=== PATIENT | male | born 1965 | race Caucasian/White ===

== ENCOUNTER 2017-09-12 12:47 | Outpatient (CLI) ==
[2013-10-03 01:09] VITALS: BMI 32.9
== END 2017-09-12 12:48 | disposition home or self-care (01) ==
LOC: LAB 12:47
PROVIDERS: ATTEND Internal Medicine
DX: Z20.5 Contact with and (suspected) exposure to viral hepatitis (principal)
CPT/HCPCS: 36415; 87522

== ENCOUNTER 2018-06-19 06:49 | Outpatient (CLI) ==
[2013-10-03 01:09] VITALS: BMI 32.9
--- NOTE | 2018-06-20 12:24 | ECHO2D ---
Date of Exam: 06/19/18 Ordering Physician: DR. RODRIGO DAVIS Room # : OP Reason for Echo: SOB M-Mode Normal Adult Results LV Dimensions Normal Adult Results AoV Opening excursions >1.6 >1.6 LVEDD-base- 3.5-5.8 4.6 Ao root dimensions 2.0-3.7 3.6 LVESD-base- 3.1-4.6 L. Atrium dimensions 1.9-3.8 4.5 Post. Wall thickness 0.8-1.1 1.1 IV septum (thickness) 0.7-1.2 1.2 Post. Wall excursion 0.72-1.3 NORMAL Septal motion NORMAL Systolic motion R. Ventricular cavity 1.5-2.0 NORMAL LVEF 60% 63% Paradoxical septal wall motion NORMAL 2-D : 2-D M Mode Echocardiogram was performed using apical four chamber and left parasternal long and short axis views. Mitral, tricuspid and aortic valves appear to be normal. Contractility of the left ventricle seems to be normal, so is the cavity size. Enlarged Left atrial cavity size. Aortic root appears to be normal. There is no pericardial effusion. There is no thrombus noted in the left ventricular or left aortic cavity. No mitral valve prolapse noted. M-MODE: MV: NORMAL AV: NORMAL TV: NORMAL PV: CHAMBER SIZE: ENLARGED LEFT ATRIAL CAVITY WALL MOTION: NORMAL PERICARDIUM: NORMAL INTERPRETATION: 1. BORDERLINE LEFT VENTRICULAR HYPERTROPHY 2. ENLARGED LEFT ATRIAL CAVITY 3. NORMAL VALVES 4. NORMAL LEFT VENTRICULAR CONTRACTILITY MTDD
== END 2018-06-19 06:50 | disposition home or self-care (01) ==
LOC: CAR 06:49
PROVIDERS: ATTEND Internal Medicine
DX: R06.02 Shortness of breath (principal)
CPT/HCPCS: 93005; 93010

== ENCOUNTER 2020-05-12 13:06 | Observation (INO) ==
[2020-05-12] MEDS ORDERED: SODIUM CHLORIDE 1,000 ML IV STA ×2 (13:52→17:55)
[2020-05-12] MEDS ORDERED: MORPHINE 4 MG/ML SYRINGE IVP STA (13:52)
--- NOTE | 2020-05-12 13:53 | ED.PDOC ---
General ED Provider: Dr. YANY KINSEY Chief Complaint: Chest Pain Stated Complaint: Lt sided chest pain. States radiating into lt arm intermittently for several months. States now it feels as if his neck is swollen and has sensation of difficulty swallowing for past 3 days. Has experienced dizziness at times and noted temperature up to 101 deg Time Seen by Physician: 13:35 Mode of Arrival: Wheelchair Information Source: Patient Exam Limitations: No limitations Primary Care Provider: RODRIGO ROUSE Referred to ED by: Clinic (Was given. Rx for outpatient testing but could not wait that long) Nursing and Triage Documentation Reviewed and Agree: Yes Does patient meet sepsis criteria?: No System Inflammatory Response Syndrome: Not Applicable Sepsis Protocol: For patient's 13 years and over: Temp is 96.8 and below OR 101 and greater Pulse >90 BPM Resp >20/minute Acutely Altered Mental Status Are patient's symptoms suggestive of a new infection, such as: -Pneumonia -Skin, Soft Tissue -Endocarditis -UTI -Bone, Joint Infection -Implantable Device -Acute Abdominal Infection -Wound Infection -Meningitis -Blood Stream Catheter Infection -Unknown Cardiovascular Complaint Exam Chest Pain Complaint/Exam Onset: Gradual Duration: 2-3 days Symptoms Are: Worse Timing: Constant (with intermittent worsening) Length of Chest Pain Episodes: 1 hr Initial Severity: Moderate Current Severity: Moderate Location: Reports Midsternal and Left anterior Pain Radiates: Reports Left shoulder and Neck Character: Reports Aching, Heaviness and Pressure Aggravating: Reports Movement and Deep breaths Alleviating: Reports Rest Associated Signs and Symptoms: Denies Diaphoresis, Nausea, Vomiting, Fever, Palpitations, Cough, Hemoptysis, Back pain, Abdominal pain, Dizziness, Short of air, Calf pain and Calf swelling Related History: Reports Similar episode and Current [place] Inhibitors Related Surgical History: Reports None History of Healthcare-Acquired Pneumonia: Reports No AMI/ACS Risk Factors: Reports Obesity, Hypertension and Dyslipidemia TAD Risk Factors: Reports Hypertension Pulmonary Embolism Risk Factors: Reports None Recent Stress Test: No Recent Echo/LV Function: No JVD Present: No Subcutaneous Emphysema Present: No Diminshed Breath Sounds: No Reproducible Chest Wall Pain: Yes Bilateral Pulses Present: Yes Unequal Pulses Noted: No Chest Picture: 1. 2. If Risk Factors for AMI/ACS Consider: EKG and Cardiac Enzymes Differential Diagnoses: ACS, Unstable Angina, Chest Wall Pain and Pulmonary Embolism Quality Indicator For Non-Traumatic Chest Pain/Syncope: EKG Performed Review of Systems Review Of Systems Constitutional: Reports No symptoms Eyes: Reports No symptoms Ears, Nose, Mouth, Throat: Reports No symptoms Respiratory: Reports No symptoms Cardiac: Reports Chest pain, Lightheadedness and Palpitations GI: Reports No symptoms : Reports No symptoms Musculoskeletal: Reports No symptoms Skin: Reports No symptoms Neurological: Reports No symptoms Endocrine: Reports No symptoms Hematologic/Lymphatic: Reports No symptoms All Other Systems: Reviewed and Negative [facility] Medical History (Updated 05/13/20 @ 08:03 by ELLA BIRCH) Arthritis Back pain COPD (chronic obstructive pulmonary disease) Diabetes Hypertension Serum lipids high Family History (Updated 05/12/20 @ 20:18 by NIDHI MARINA) Mother Hypertension Diabetes FATHER Hypertension Diabetes Social History (Updated 05/12/20 @ 20:18 by NIDHI MARINA) Smoking and tobacco status: Never smoker Alcohol intake: former Physical Exam Physical Exam Appearance: Reports Well-appearing, Well-nourished and Obese Ill-appearing: Mild Pain Distress: Moderate Eyes: Reports KYLE, EOMI and Conjunctiva clear ENT: Reports Ears normal, Nose normal and Oropharynx normal Neck: Supple Respiratory: Reports Airway patent, Breath sounds clear, Breath sounds equal and Respirations nonlabored Cardiovascular: Reports RRR, Pulses normal, No rub and No murmur GI/: Reports Soft, Nontender, No masses, Bowel sounds normal and No Organomegaly Musculoskeletal: Reports Normal strength, ROM intact, No edema and No calf tenderness Skin: Reports Warm, Dry and Normal color Neurological: Reports Sensation intact, Motor intact, Reflexes intact, Cranial nerves intact, Alert and Oriented Psychiatric: Reports Affect appropriate and Mood appropriate Interpretation Radiology Interpretation Radiology Interpretation By: Radiologist Radiology Results: No acute changes (Chest) Exam Interpreted: CT Scan (CTA Neck-No masses or vascular occlusions) Physician Notification Case Discussed Physician Notified: Rouse-admit R/O Angina- [place] Time of Notification: 15:40 Critical Care Note Critical Care Note Total Time (mins): 60 Course Course Hematology/Chemistry: 05/13/20 04:45 05/13/20 04:45 Orders, Labs, Meds: Lab Review 05/12/20 05/12/20 05/12/20 09:10 09:10 13:50 WBC RBC Hgb Hct MCV MCH MCHC RDW Coeff of Anneliese Plt Count Immature Gran % (Auto) Neut % (Auto) Lymph % (Auto) [place] % (Auto) Eos % (Auto) Baso % (Auto) Neut # (Auto) Lymph # (Auto) [place] # (Auto) Eos # (Auto) Baso # (Auto) Immature Gran # (Auto) Puncture Site O2 Saturation ABG pH ABG pCO2 ABG pO2 ABG HCO3 ABG Total CO2 ABG Base Excess [place] Test FiO2 % Sodium Potassium Chloride Carbon Dioxide Anion Gap BUN Creatinine Estimated GFR (MDRD) BUN/Creatinine Ratio Glucose Lactic Acid Uric Acid Calcium Magnesium Total Bilirubin AST ALT Alkaline Phosphatase Total Creatine Kinase Troponin I C-Reactive Prot, Quant 14 H Total Protein Albumin Globulin Albumin/Globulin Ratio Urine Color Yellow Urine Clarity Clear Urine pH 5.0 Ur Specific [place] >=1.030 Urine Protein Negative Urine Glucose (UA) 3+ H Urine Ketones Trace H Urine Blood Negative Urine Nitrite Negative Urine Bilirubin Negative Urine Urobilinogen 0.2 Ur Leukocyte Esterase Negative Urine Opiates Screen Ur Oxycodone Screen Urine Methadone Screen Ur Propoxyphene Screen Ur Barbiturates Screen U Tricyclic Antidepress Ur Phencyclidine Scrn Ur Amphetamine Screen U Methamphetamines Scrn U Benzodiazepines Scrn Urine Cocaine Screen U Cannabinoids Screen FOREST Screen Negative Influ A Molecular Assay Influ B Molecular Assay 05/12/20 05/12/20 05/12/20 13:50 14:05 14:05 WBC 6.10 RBC 4.60 L Hgb 14.0 Hct 40.6 L MCV 88.3 MCH 30.4 MCHC 34.5 RDW Coeff of Anneliese 12.7 Plt Count 185 Immature Gran % (Auto) 0.5 Neut % (Auto) 67.8 Lymph % (Auto) 21.0 [place] % (Auto) 7.4 Eos % (Auto) 2.8 Baso % (Auto) 0.5 Neut # (Auto) 4.1 Lymph # (Auto) 1.3 [place] # (Auto) 0.5 Eos # (Auto) 0.2 Baso # (Auto) 0.0 Immature Gran # (Auto) 0.0 Puncture Site O2 Saturation ABG pH ABG pCO2 ABG pO2 ABG HCO3 ABG Total CO2 ABG Base Excess [place] Test FiO2 % Sodium 136.4 Potassium 4.17 Chloride 101.4 Carbon Dioxide 27.3 Anion Gap 11.87 BUN 9.9 Creatinine 0.84 Estimated GFR (MDRD) 95.00 BUN/Creatinine Ratio 11.78 Glucose 230.1 H Lactic Acid Uric Acid 3.34 L Calcium 9.51 Magnesium 1.94 Total Bilirubin 0.43 AST 30.1 ALT 25.2 Alkaline Phosphatase 59.1 Total Creatine Kinase 79.5 Troponin I 0.055 C-Reactive Prot, Quant Total Protein 7.74 Albumin 4.38 Globulin 3.36 Albumin/Globulin Ratio 1.30 Urine Color Urine Clarity Urine pH Ur Specific [place] Urine Protein Urine Glucose (UA) Urine Ketones Urine Blood Urine Nitrite Urine Bilirubin Urine Urobilinogen Ur Leukocyte Esterase Urine Opiates Screen Positive H Ur Oxycodone Screen Positive H Urine Methadone Screen Negative Ur Propoxyphene Screen Negative Ur Barbiturates Screen Negative U Tricyclic Antidepress Negative Ur Phencyclidine Scrn Negative Ur Amphetamine Screen Negative U Methamphetamines Scrn Negative U Benzodiazepines Scrn Negative Urine Cocaine Screen Negative U Cannabinoids Screen Negative FOREST Screen Influ A Molecular Assay Influ B Molecular Assay 05/12/20 05/12/20 05/12/20 14:05 14:45 14:55 WBC RBC Hgb Hct MCV MCH MCHC RDW Coeff of Anneliese Plt Count Immature Gran % (Auto) Neut % (Auto) Lymph % (Auto) [place] % (Auto) Eos % (Auto) Baso % (Auto) Neut # (Auto) Lymph # (Auto) [place] # (Auto) Eos # (Auto) Baso # (Auto) Immature Gran # (Auto) Puncture Site Rr O2 Saturation 96.0 ABG pH 7.382 ABG pCO2 41.6 ABG pO2 87.0 ABG HCO3 24.7 ABG Total CO2 26 ABG Base Excess 0 [place] Test + FiO2 % 21.0 Sodium Potassium Chloride Carbon Dioxide Anion Gap BUN Creatinine Estimated GFR (MDRD) BUN/Creatinine Ratio Glucose Lactic Acid 1.27 Uric Acid Calcium Magnesium Total Bilirubin AST ALT Alkaline Phosphatase Total Creatine Kinase Troponin I C-Reactive Prot, Quant Total Protein Albumin Globulin Albumin/Globulin Ratio Urine Color Urine Clarity Urine pH Ur Specific [place] Urine Protein Urine Glucose (UA) Urine Ketones Urine Blood Urine Nitrite Urine Bilirubin Urine Urobilinogen Ur Leukocyte Esterase Urine Opiates Screen Ur Oxycodone Screen Urine Methadone Screen Ur Propoxyphene Screen Ur Barbiturates Screen U Tricyclic Antidepress Ur Phencyclidine Scrn Ur Amphetamine Screen U Methamphetamines Scrn U Benzodiazepines Scrn Urine Cocaine Screen U Cannabinoids Screen FOREST Screen Influ A Molecular Assay Negative by naat Influ B Molecular Assay Negative by naat Orders Category Date Time Status ABG DRAW REQUEST Stat CARDIO 05/12/20 13:53 Completed EKG-(ED ONLY) Stat CARDIO 05/12/20 13:53 Completed OXYGEN Routine CARDIO 05/12/20 13:53 Completed NPO REMINDER: IMAGING ONCE CARE 05/12/20 15:51 Completed IV [ED IV/MEDIPORT/POWERPORT] .ONCE EMERGENCY 05/12/20 13:53 Active ABG Stat LAB 05/12/20 14:55 Completed FOREST W/REFLEX Stat LAB 05/12/20 09:10 Completed C-REACTIVE PROTEIN Stat LAB 05/12/20 09:10 Completed CBC W/ AUTO DIFF Stat LAB 05/12/20 14:05 Completed CMP [COMPREHENSIVE METABOLIC PANEL] Stat LAB 05/12/20 14:05 Completed CREATINE KINASE Stat LAB 05/12/20 14:05 Completed FLU A/B MOLECULAR Stat LAB 05/12/20 14:45 Completed LACTIC ACID Stat LAB 05/12/20 14:05 Completed MAGNESIUM Stat LAB 05/12/20 14:05 Completed RAPID STREP SCREEN [MOLECULAR GROUP A STREP] Stat LAB 05/12/20 14:45 Completed TROPONIN I Stat LAB 05/12/20 14:05 Completed UA [URINALYSIS C & S IF INDICATED] Stat LAB 05/12/20 13:50 Completed URIC ACID Stat LAB 05/12/20 14:05 Completed URINE DRUG SCREEN (RAPID FOR ED) [DRUG SCREEN, URINE, LAB 05/12/20 13:50 Completed RAPID] Stat 0.9 % Sodium Chloride [Saline Flush] MEDS 05/12/20 13:52 Discontinued 1 syr IVF PRN PRN Morphine Sulfate [Morphine 2 mg/ml Syringe] MEDS 05/12/20 15:52 Discontinued 2 mg IVP ONCE STA Morphine Sulfate [Morphine 4 mg/ml Syringe] MEDS 05/12/20 13:52 Discontinued 4 mg IVP ONCE STA Nitroglycerin [Nitrostat] MEDS 05/12/20 13:56 Discontinued 0.4 mg SL ONCE STA Sodium Chloride 0.9% [Sodium Chloride] 1,000 ml MEDS 05/12/20 13:52 Discont inued IV BOLUS CHEST, 1V AP ONLY Stat RADS 05/12/20 13:53 Completed CTA ANGIO NECK Stat RADS 05/12/20 15:50 Completed Medications Discontinued Medications Generic Name Dose Route Start Last Admin Trade Name Freq PRN Reason Stop Dose Admin Acetaminophen 650 mg 05/12/20 17:55 05/13/20 04:45 Tylenol PO 650 mg Q4H PRN Administration Temp above 101 deg Hydrocodone Bitart/Acetaminophen 1 tab 05/12/20 21:00 05/12/20 21:07 [place] 10-325 PO 1 tab QID ROSALINDA Administration Hydrocodone Bitart/Acetaminophen 1 tab 05/13/20 06:08 05/13/20 12:23 [place] 10-325 PO 1 tab QID PRN Administration Pain Albuterol Sulfate 2 puff 05/12/20 18:30 Ventolin Hfa (Per Puff-With Spacer) IH QID ROSALINDA Albuterol Sulfate 2 puff 05/12/20 20:00 05/13/20 10:02 Ventolin Hfa (Per Puff-With Spacer) IH 2 puff RTQID ROSALINDA Administration Aspirin 81 mg 05/13/20 08:30 05/13/20 08:29 Aspirin Ec PO 81 mg DAILYWM ROSALINDA Administration Clonazepam 1 mg 05/12/20 18:00 05/12/20 21:11 Klonopin PO 1 mg BEDTIME ROSALINDA Administration Clonidine 0.1 mg 05/12/20 21:00 Catapres PO BID ROSALINDA Clonidine 0.1 mg 05/12/20 20:58 Catapres PO BID PRN hypertension Enoxaparin Sodium 40 mg 05/12/20 18:00 05/13/20 08:29 Lovenox SUBCUT 40 mg DAILY ROSALINDA Administration Fish Oil 2,000 mg 05/13/20 09:00 05/13/20 08:29 [place]-3 Fish Oil PO 2,000 mg DAILY ROSALINDA Administration Gabapentin 300 mg 05/12/20 21:00 05/12/20 21:07 Neurontin PO 300 mg BEDTIME ROSALINDA Administration Gabapentin 100 mg 05/13/20 09:00 05/13/20 08:29 Neurontin PO 100 mg DAILY ROSALINDA Administration Sodium Chloride 1,000 mls @ 1,000 mls/hr 05/12/20 13:52 05/12/20 15:09 Sodium Chloride IV 05/12/20 14:51 1,000 mls/hr BOLUS STA Administration Sodium Chloride 1,000 mls @ 125 mls/hr 05/12/20 17:55 05/12/20 21:10 Sodium Chloride IV 05/13/20 01:54 125 mls/hr BOLUS STA Administration Insulin Human Regular 0 unit 05/12/20 20:51 05/13/20 12:23 Humulin R SUBCUT 6 unit PRN PRN Administration Hyperglycemia Protocol Ketorolac Tromethamine 30 mg 05/12/20 17:55 05/12/20 18:45 Toradol IVP 05/12/20 17:56 30 mg ONCE STA Administration Lisinopril 20 mg 05/12/20 21:00 05/13/20 08:29 Zestril PO 20 mg BID ROSALINDA Administration Methylprednisolone Sodium Succinate 125 mg 05/12/20 21:00 05/13/20 05:56 Solu-Medrol 125 Mg IVP 125 mg Q8HR ROSALINDA Administration Morphine Sulfate 4 mg 05/12/20 13:52 05/12/20 15:04 Morphine 4 Mg/Ml Syringe IVP 05/12/20 13:53 4 mg ONCE STA Administration Morphine Sulfate 2 mg 05/12/20 15:52 05/12/20 16:10 Morphine 2 Mg/Ml Syringe IVP 05/12/20 15:53 2 mg ONCE STA Administration Nitroglycerin 0.4 mg 05/12/20 13:56 05/12/20 15:08 Nitrostat SL 05/12/20 13:57 0.4 mg ONCE STA Administration Ondansetron HCl 4 mg 05/12/20 17:55 Zofran 4 Mg/2 Ml IVP Q6H PRN Nausea / Vomiting Pravastatin Sodium 80 mg 05/13/20 09:00 05/13/20 08:29 Pravachol PO 80 mg DAILY ROSALINDA Administration Sodium Chloride 1 syr 05/12/20 13:52 05/12/20 16:14 Saline Flush IVF 1 syr PRN PRN Administration To flush IV Sodium Chloride 1 syr 05/13/20 05:00 05/13/20 05:56 Saline Flush IVF 1 syr Q8HR ROSALINDA Administration Vital Signs: Temp Pulse Resp BP Pulse Ox 05/12/20 13:11 98.9 F 88 20 138/98 H 95 JAMISON Risk Score JAMISON Risk Score: Risk Score Odds of by 30D 0 0.1 (0.1-0.2) 1 0.3 (0.2-0.3) 2 0.4 (0.3-0.5) 3 0.7 (0.6-0.9) 4 1.2 (1.0-1.5) 5 2.2 (1.9-2.6) 6 3.0 (2.5-3.6) 7 4.8 (3.8-6.1) Discharge Plan Discharge Patient Disposition: PLACED OBSERVATION Discharge Problem: Chest pain, Angina pectoris, Diabetes mellitus Instructions: Chest Pain (DC) Additional Instructions: DISCHARGE HOME DIET: TOLERATED. DIABETIC ACTIVITY: RESUME TOLERATED AVOID EXERTIONAL ACTIVITY IN HOT, HUMID CONDITIONS CONTINUE TO CHECK YOU BLOOD SUGAR INSTRUCTED CONTINUE ALL HOME MEDICATIONS EXCEPT DO NOT TAKE METFORMIN (GLUCOPHAGE) TODAY OR TOMORROW (SATURDAY) DUE TO IV CONTRAST RECEIVED YESTERDAY. YOU MAY RESUME THE METFORMIN (GLUCOPHAGE) ON SATURDAY MORNING NO PRESCRIPTIONS YOU ARE SCHEDULED FOR AN OUTPATIENT MODIFIED STRESS/REST ECHO SESTAMIBI ON AT 9 AM. PLEASE CHECK IN AT PATIENT REGISTRATION. EAT A LIGHT BREAKFAST ONLY. AN APPOINTMENT IS SCHEDULED WITH DR. ROUSE/DENISHA CABEZAS APRN/MAXIMILIAN MICHAELS APRN ON AT 10:45 AM ED Provider: YANY KINSEY Condition: Fair Discharge Date/Time: 05/12/20 18:43
[2020-05-12] MEDS ORDERED: NITROSTAT SL STA (13:56)
[2020-05-12 14:10] LABS: BASOPHILS % (AUTO) 0.5 % (0.0-3.0); EOSINOPHILS # (AUTO) 0.2 K/ul (0.0-0.7); EOSINOPHILS % (AUTO) 2.8 % (0.0-7.0); HEMATOCRIT 40.6 % (42.0-52.0); IMMATURE GRANULOCYTE % (AUTO) 0.5 % (0.0-5.0); LYMPHOCYTES # (AUTO) 1.3 K/uL (0.60-3.4); MEAN CORPUSCULAR HGB CONC 34.5 (31.8-35.4); MEAN CORPUSCULAR VOLUME 88.3 fl (80.0-94.0); MONOCYTES # (AUTO) 0.5 K/uL (0.4-2.0); MONOCYTES % (AUTO) 7.4 (0-10); NEUTROPHILS # (AUTO) 4.1 K/ul (2.0-6.9); NEUTROPHILS % (AUTO) 67.8 % (42.2-75.2); PLATELET COUNT 185 10^3/uL (140-440); RDW COEFFICIENT OF VARIATION 12.7 % (11.6-14.8)
[2020-05-12 14:40] LABS: ALANINE AMINOTRANSFERASE 25.2 U/L (0-50); ALBUMIN 4.38 g/dL (3.5-5.0); ALKALINE PHOSPHATASE 59.1 U/L (38-126); ASPARTATE AMINO TRANSFERASE 30.1 U/L (17-59); BILIRUBIN,TOTAL 0.43 mg/dL (0.2-1.3); BLOOD UREA NITROGEN 9.9 mg/dL (9-20); CALCIUM 9.51 mg/dL (8.4-10.2); CARBON DIOXIDE 27.3 mmol/L (22-30.0); CHLORIDE 101.4 mmol/L (98-107); CREATINE KINASE 79.5 U/L (55-170); CREATININE 0.84 mg/dL (0.60-1.10); GLUCOSE 230.1 mg/dL (74-106); MAGNESIUM 1.94 mg/dL (1.6-2.3); SODIUM 136.4 mmol/L (134.5-145); TOTAL PROTEIN 7.74 g/dL (6.3-8.2); URIC ACID 3.34 mg/dL (3.5-8.5)
[2020-05-12 15:08] LABS: ABG BASE EXCESS 0 (-2.0-2.0); ABG PCO2 41.6 mmHg (35-45); ABG PH 7.382 (7.35-7.45)
[2020-05-12 15:09] LABS: ABG HCO3 24.7 (22.0-26.0); ABG TCO2 26 (22.0-28.0)
--- NOTE | 2020-05-12 15:41 | DI ---
EXAM: Chest one view, frontal view only. HISTORY: Chest pain, dyspnea. COMPARISON: 11/14/2014, 10/03/2013. FINDINGS: The heart size is normal. There is no pulmonary vascular congestion. The lungs are clear . No pleural effusion or pneumothorax is seen. No acute osseous abnormality is identified. Since t he prior study, there has been no significant interval change. IMPRESSION: No acute cardiopulmonary process.
[2020-05-12] MEDS ORDERED: MORPHINE 2 MG/ML SYRINGE IVP STA (15:52)
[2020-05-12 17:08] LABS: BILIRUBIN,URINE Negative (NEGATIVE); CLARITY,URINE Clear (CLEAR); COLOR,URINE Yellow (YELLOW); KETONES,URINE Trace (NEGATIVE); LEUKOCYTE ESTERASE ,URINE Negative (NEGATIVE); NITRITE,URINE Negative (NEGATIVE); URINE, BLOOD Negative (NEGATIVE); UROBILINOGEN,URINE 0.2 (0.2)
[2020-05-12 17:09] LABS: GLUCOSE, URINE (UA) 3+ (NEGATIVE)
[2020-05-12 17:16] LABS: OPIATE SCREEN,URINE POSITIVE (NEGATIVE)
[2020-05-12 17:17] LABS: AMPHETAMINE SCREEN,URINE NEGATIVE (NEGATIVE); BARBITURATE SCREEN,URINE NEGATIVE (NEGATIVE); BENZODIAZEPINES SCREEN,URINE NEGATIVE (NEGATIVE); CANNABINOID SCREEN,URINE NEGATIVE (NEGATIVE); COCAIN SCREEN,URINE NEGATIVE (NEGATIVE); METHADONE URINE SCREEN NEGATIVE (NEGATIVE); METHAMPHETAMINES SCREEN,URINE NEGATIVE (NEGATIVE); OXYCODONE URINE SCREEN POSITIVE (NEGATIVE); PHENCYCLIDINE SCREEN,URINE NEGATIVE (NEGATIVE); PROPOXYPHENE URINE SCREEN NEGATIVE (NEGATIVE); TRICYCLIC ANTIDEPRESSANTS URIN NEGATIVE (NEGATIVE)
[2020-05-12 17:34] LABS: MOLECULAR FLU A NEGATIVE BY NAAT (NEGATIVE); MOLECULAR FLU B NEGATIVE BY NAAT (NEGATIVE)
--- NOTE | 2020-05-12 17:34 | CT ---
Exam: CT angiography of the neck History: Swelling and pain Technique: 3 mm precontrast and postcontrast CT angiography of the neck. Multiplanar and maximum in tensity projection reformations were performed. FINDINGS: The pharynx and trachea appear normal. Normal cervical esophagus and prevertebral soft tis sues. Normal parotid, submandibular and thyroid gland. Lung apices are clear. Normal common caroti d artery. Trace calcification of the proximal internal carotid artery. There is no measurable narro wing. The vertebral arteries are widely patent. No acute findings of the skeleton. Impression: 1. Minimal atherosclerotic calcification of the left internal carotid artery. There is no measurabl e stenosis on either side. 2. Negative exam otherwise.
[2020-05-12] MEDS ORDERED: ZOFRAN 4 MG/2 ML IVP PRN (17:55)
[2020-05-12] MEDS ORDERED: TORADOL IVP STA (17:55)
[2020-05-12] MEDS ORDERED: TYLENOL PO PRN (17:55)
[2020-05-12] MEDS ORDERED: VENTOLIN HFA (PER PUFF-WITH SPACER) IH SCH (18:30)
[2020-05-12] MEDS ORDERED: NON-FORMULARY MEDICATION (Hydrocodone-Acetaminophen 1 TAB) PO SCH (18:45)
[2020-05-12] MEDS: VENTOLIN HFA (PER PUFF-WITH SPACER) IH SCH (19:50)
[2020-05-12 20:19] VITALS: BMI 35.6
[2020-05-12] MEDS ORDERED: CATAPRES PO PRN (20:58)
[2020-05-12] MEDS ORDERED: CATAPRES PO SCH (21:00)
[2020-05-12] MEDS ORDERED: NEURONTIN PO SCH (21:00)
[2020-05-12] MEDS ORDERED: NORCO 10-325 PO SCH (21:00)
[2020-05-12] MEDS: KLONOPIN PO SCH ×2 (21:04→21:11)
[2020-05-12] MEDS: ZESTRIL PO SCH (21:07)
[2020-05-12] MEDS: SOLU-MEDROL 125 MG IVP SCH (21:09)
[2020-05-12] MEDS: LOVENOX SUBCUT SCH (21:46)
[2020-05-13] MEDS: VENTOLIN HFA (PER PUFF-WITH SPACER) IH SCH ×2 (04:57→10:02)
[2020-05-13 05:40] LABS: BASOPHILS % (AUTO) 0.3 % (0.0-3.0); EOSINOPHILS % (AUTO) 0.2 % (0.0-7.0); HEMATOCRIT 39.1 % (42.0-52.0); HEMOGLOBIN 13.6 g/dl (14.0-18.0); IMMATURE GRANULOCYTE % (AUTO) 0.3 % (0.0-5.0); LYMPHOCYTES # (AUTO) 0.6 K/uL (0.60-3.4); LYMPHOCYTES % (AUTO) 10.8 (10.0-50.0); MEAN CORPUSCULAR HGB CONC 34.8 (31.8-35.4); MEAN CORPUSCULAR VOLUME 87.5 fl (80.0-94.0); MONOCYTES # (AUTO) 0.1 K/uL (0.4-2.0); NEUTROPHILS # (AUTO) 5.1 K/ul (2.0-6.9); NEUTROPHILS % (AUTO) 87.4 % (42.2-75.2); PLATELET COUNT 192 10^3/uL (140-440); RDW COEFFICIENT OF VARIATION 12.2 % (11.6-14.8); RED BLOOD COUNT 4.47 10^6/ul (4.70-6.10); WHITE BLOOD COUNT 5.81 K/ul (4.2-10.2)
[2020-05-13 05:41] LABS: ALANINE AMINOTRANSFERASE 26.5 U/L (0-50); ALBUMIN 3.98 g/dL (3.5-5.0); ALKALINE PHOSPHATASE 65.3 U/L (38-126); BILIRUBIN,TOTAL 0.5 mg/dL (0.2-1.3); BLOOD UREA NITROGEN 12.9 mg/dL (9-20); CALCIUM 9.35 mg/dL (8.4-10.2); CARBON DIOXIDE 25.2 mmol/L (22-30.0); CHLORIDE 102.2 mmol/L (98-107); CREATININE 0.78 mg/dL (0.60-1.10); GLUCOSE 300.4 mg/dL (74-106); SODIUM 132.8 mmol/L (134.5-145); TOTAL PROTEIN 7.18 g/dL (6.3-8.2)
[2020-05-13] MEDS: SOLU-MEDROL 125 MG IVP SCH (05:56)
[2020-05-13] MEDS: HUMULIN R SUBCUT PRN ×2 (06:30→12:23)
[2020-05-13] MEDS: NORCO 10-325 PO PRN ×2 (07:47→12:23)
[2020-05-13] MEDS: LOVENOX SUBCUT SCH (08:29)
[2020-05-13] MEDS: ZESTRIL PO SCH (08:29)
[2020-05-13] MEDS ORDERED: ASPIRIN EC PO SCH (08:30)
[2020-05-13] MEDS ORDERED: PRAVACHOL PO SCH (09:00)
[2020-05-13] MEDS ORDERED: OMEGA-3 FISH OIL PO SCH (09:00)
[2020-05-13] MEDS ORDERED: NEURONTIN PO SCH (09:00)
--- NOTE | 2020-05-13 09:01 | PCM.PROG ---
Attending Provider: ATTENDING PROVIDER: Dr. RODRIGO DAVIS DATE OF SERVICE: 05/13/20 SUBJECTIVE: This 55 year old /WHITE M was hospitalized 05/12/20 with chest pain and neck swelling. The patient's work up so far including CT Angiogram of neck, Chest x-ray and EKG are all negative. The patient has been up and about. No neurological deficit. The other symptoms the patient had were shortness of max ath, neck swelling and fever at home. No cough. Pain was sharp precordial left and right side going to the neck area. Stress echo on Saturday. The patient is disabled and unable to walk but we will try our best. Dobutamine was refused by the patient does not want any chemical stress test. Diabetes mellitus has been explained about risk factors and complications it creates. The patient is noncompliant. He chews tobacco. BMI 36. Noncompliant of lifestyle, recommendations and medications. REVIEW OF SYSTEMS: CONSTITUTIONAL: No night sweats. No fatigue, malaise, lethargy. No fever or chills. HEENT: Eyes: No visual changes. No eye pain. No eye discharge. ENT: No runny nose. No epistaxis. No sinus pain. No odynophagia. No congestion. RESPIRATORY: No cough, no congestion. No hemoptysis. No shortness of breath. CARDIOVASCULAR: No angina symptoms. No CHF symptoms. No atypical chest pain for CAD. No palpitations. No orthopnea.. GASTROINTESTINAL: No abdominal pain. No nausea or vomiting. No diarrhea or constipation. No hematemesis. No hematochezia. GENITOURINARY: No urgency. No frequency. No dysuria. No hematuria. No obstructive symptoms. No discharge. No pain. No significant abnormal bleeding. MUSCULOSKELETAL: No musculoskeletal pain; no joint swelling. NEUROLOGICAL: Awake, alert, oriented to time, place and person. No headache. No neck pain. No syncope. No seizures. No dizziness. PSYCHIATRIC: Not anxious. No depression. No suicidal thoughts. No homicidal thou ghts. SKIN: No rash. No lesions. No wounds. ENDOCRINE: No unexplained weight loss. No weight gain. HEMATOLOGIC/LYMPHATIC: No anemia. No purpura. No petechiae. No prolonged or excessive bleeding. No palpable lymph nodes. PHYSICAL EXAMINATION: GENERAL: The patient is awake, alert and oriented, sitting in bed in no distress. VITAL SIGNS: Temperature 96.9 F, Pulse 80, Respiratory Rate 18, BP 160/98, Pulse Ox 99% HEENT: Head normocephalic, atraumatic. Eyes: Extraocular muscles are intact. Pupils are equal, round and reactive to light and accommodation. Ears: No l esions. Nose appeared normal. Throat: No exudate or erythema. NECK: Supple. No JVD, no carotid bruit. No lymphadenopathy or thyromegaly. LUNGS: Clear to auscultation. Percussion note normal. Chest symmetrical. HEART: S1, S2, no S3. No murmurs. No cyanosis or clubbing. No ascites. Pulses: Dorsalis pedis and posterior tibial pulses +1 to +2 both sides. ABDOMEN: Soft. Non-tender. Bowel sounds active. No CVA tenderness. No mass felt. EXTREMITIES: No edema. Full range of motion of all extremities, equal. NEUROLOGIC: No focal deficit. Cranial nerves II through XII are grossly intact. No headache, no double vision or headache. SKIN: Warm and dry. Intact. Turgor-normal. LYMPHATIC: No palpable lymph nodes/no lymphedema. MUSCULOSKELETAL: Normal joints with no swelling. Muscle tone is normal. LAB REVIEW: 05/13/20 04:45 05/13/20 04:45 05/13/20 04:45: Sodium 132.8 L, Potassium 4.45, Chloride 102.2, Carbon Dioxide 25.2, Anion Gap 9.85, BUN 12.9, Creatinine 0.78, Estimated GFR (MDRD) 103.00, BUN/Creatinine Ratio 16.53, Glucose 300.4 H D, Calcium 9.35, Total Bilirubin 0.50, AST 29.0, ALT 26.5, Alkaline Phosphatase 65.3, Total Protein 7.18, Albumin 3.98, Globulin 3.20, Albumin/Globulin Ratio 1.24 05/13/20 04:45: WBC 5.81, RBC 4.47 L, Hgb 13.6 L, Hct 39.1 L, MCV 87.5, MCH 30.4, MCHC 34.8, RDW Coeff of Anneliese 12.2, Plt Count 192, Immature Gran % (Auto) 0.3, Neut % (Auto) 87.4 H, Lymph % (Auto) 10.8, [place] % (Auto) 1.0, Eos % (Auto) 0.2, Baso % (Auto) 0.3, Neut # (Auto) 5.1, Lymph # (Auto) 0.6, [place] # (Auto) 0.1 L, Eos # (Auto) 0.0, Baso # (Auto) 0.0, Immature Gran # (Auto) 0.0 05/13/20 00:00: Troponin I 0.060 05/12/20 23:58: Troponin I 0.060 05/12/20 14:55: Puncture Site Rr, O2 Saturation 96.0, ABG pH 7.382, ABG pCO2 41.6, ABG pO2 87.0, ABG HCO3 24.7, ABG Total CO2 26, ABG Base Excess 0, [place] Test +, FiO2 % 21.0 05/12/20 14:45: Influ A Molecular Assay Negative by naat, Influ B Molecular Assay Negative by naat 05/12/20 14:05: Lactic Acid 1.27 05/12/20 14:05: Sodium 136.4, Potassium 4.17, Chloride 101.4, Carbon Dioxide 27.3, Anion Gap 11.87, BUN 9.9, Creatinine 0.84, Estimated GFR (MDRD) 95.00, BUN/Creatinine Ratio 11.78, Glucose 230.1 H, Uric Acid 3.34 L, Calcium 9.51, Magnesium 1.94, Total Bilirubin 0.43, AST 30.1, ALT 25.2, Alkaline Phosphatase 59.1, Total Creatine Kinase 79.5, Troponin I 0.055, Total Protein 7.74, Albumin 4.38, Globulin 3.36, Albumin/Globulin Ratio 1.30 05/12/20 14:05: WBC 6.10, RBC 4.60 L, Hgb 14.0, Hct 40.6 L, MCV 88.3, MCH 30.4, MCHC 34.5, RDW Coeff of Anneliese 12.7, Plt Count 185, Immature Gran % (Auto) 0.5, Neut % (Auto) 67.8, Lymph % (Auto) 21.0, [place] % (Auto) 7.4, Eos % (Auto) 2.8, Baso % (Auto) 0.5, Neut # (Auto) 4.1, Lymph # (Auto) 1.3, [place] # (Auto) 0.5, Eos # (Auto) 0.2, Baso # (Auto) 0.0, Immature Gran # (Auto) 0.0 05/12/20 13:50: Urine Opiates Screen Positive H, Ur Oxycodone Screen Positive H, Urine Methadone Screen Negative, Ur Propoxyphene Screen Negative, Ur Barbiturates Screen Negative, U Tricyclic Antidepress Negative, Ur Phencyclidine Scrn Negative, Ur Amphetamine Screen Negative, U Methamphetamines Scrn Negative, U Benzodiazepines Scrn Negative, Urine Cocaine Screen Negative, U Cannabinoids Screen Negative 05/12/20 13:50: Urine Color Yellow, Urine Clarity Clear, Urine pH 5.0, Ur Specific [place] >=1.030, Urine Protein Negative, Urine Glucose (UA) 3+ H, Urine Ketones Trace H, Urine Blood Negative, Urine Nitrite Negative, Urine Bilirubin Negative, Urine Urobilinogen 0.2, Ur Leukocyte Esterase Negative 05/12/20 09:10: C-Reactive Prot, Quant 14 H ASSESSMENT: Please see below. 1. Chest pain, non-cardiac by history. PLAN: 1. Echo 2. PFT Plan and coordination of the patient's care discussed in the presence of Estimator Binding and nurse. CONDITION: Stable. SCRIBED BY: Saw ANDRADE scribed while in presence of service performed by Dr. RODRIGO DAVIS on 05/13/20 (0800)
[2020-05-13 11:09] VITALS: BP 133/69; TEMP 97.8
[2020-05-13 14:13] LABS: ANA DIRECT Negative (Negative)
--- NOTE | 2020-05-16 13:08 | ECHO2D ---
Date of Exam: 05/13/2020 Ordering Physician: DR. RODRIGO DAVIS Room #: 110 Reason for Echo: CHEST PAIN, SOB, WEAKNESS M-Mode Normal Adult Results LV Dimensions Normal Adult Results AoV Opening excursions >1.6 >1.6 LVEDD-base- 3.5-5.8 5.6 Ao root dimensions 2.0-3.7 3.6 LVESD-base- 3.1-4.6 L. Atrium dimensions 1.9-3.8 4.5 Post. Wall thickness 0.8-1.1 1.3 IV septum (thickness) 0.7-1.2 1.5 Post. Wall excursion 0.72-1.3 NORMAL Septal motion NORMAL Systolic motion R. Ventricular cavity 1.5-2.0 NORMAL LVEF 60% 60% Paradoxical septal wall motion NORMAL 2-D : 2-D M Mode Echocardiogram was performed using apical four chamber and left parasternal long and short axis views. Mitral, tricuspid and aortic valves appear to be normal. Contractility of the left ventricle seems to be normal, so is the cavity size. ENLARGED LEFT ATRIAL CAVITY. Aortic root appears to be normal. There is no pericardial effusion. There is no thrombus noted in the left ventricle or left atrial cavity. No mitral valve prolapse noted. COLOR FLOW: MILD TO MODERATE AORTIC REGURGITATION M-MODE: MV: NORMAL AV: NORMAL TV: NORMAL PV: CHAMBER SIZE: ENLARGED LEFT ATRIAL CAVITY WALL MOTION: NORMAL PERICARDIUM: NORMAL INTERPRETATION: 1. LEFT VENTRICULAR HYPERTROPHY WITH ENLARGED LEFT ATRIAL CAVITY 2. LEFT VENTRICLE CAVITY (5.6 CM) 3. NORMAL LEFT VENTRICULAR CONTRACTILITY 4. NORMAL VALVES MTDD
--- NOTE | 2020-05-16 14:40 | SSS ---
DATE OF SERVICE: 05/12/20 (ADMIT); 05/13/20 (DISCHARGE) REASON FOR CONSULTATION/ADMISSION: Chest pain, neck swelling. HISTORY OF PRESENT ILLNESS: 55-year-old male with left chest pain radiating to left arm intermittently for months. Reports has worsened in the last 2 to 5 days. Also, neck swelling, dizziness. ER treatment - NSS 1L. Morphine 4 mg times one then 2 mg IV times one. Nitroglycerin times one. REVIEW OF SYSTEMS: CONSTITUTIONAL: No night sweats. No fatigue, malaise, lethargy. No fever or chills. HEENT: Eyes: No visual changes. No eye pain. No eye discharge. ENT: No runny nose. No epistaxis. No sinus pain. No sore throat. No odynophagia. No ear pain. No congestion. RESPIRATORY: No cough, no congestion. No hemoptysis. No shortness of breath. CARDIOVASCULAR: No angina symptoms. No CHF symptoms. No atypical chest pain for CAD. No palpitations. No orthopnea. GASTROINTESTINAL: No abdominal pain. No nausea or vomiting. No diarrhea or constipation. No hematemesis. No hematochezia. GENITOURINARY: No dysuria. No hematuria. No obstructive symptoms. No discharge. No pain. No significant abnormal bleeding. MUSCULOSKELETAL: No musculoskeletal pain. No joint swelling. NEUROLOGICAL: Awake, alert, oriented to time, place and person. No headache. No neck pain. No syncope. No seizures. No dizziness. PSYCHIATRIC: Not anxious. No depression. No suicidal thoughts. No homicidal thoughts. SKIN: No rash. No lesions. No wounds. ENDOCRINE: No unexplained weight loss. No weight gain. HEMATOLOGIC/LYMPHATIC: No anemia. No purpura. No petechiae. No prolonged or excessive bleeding. No palpable lymph nodes. PAST HISTORY: Arthritis Back pain COPD Diabetes Mellitus type 2 Hypertension High lipids cholecystectomy Noncompliance with meds, diet and lifestyle PERSONAL/FAMILY HISTORY/SOCIAL HISTORY: Single, lives alone. Independent with ADLs. Nonsmoker, chews some. Diabetes mellitus in father and mother; hypertension in mother and father. Former alcohol drinker. DME: BP machine, glucometer, nebulizer, TENS. PHYSICAL EXAMINATION: GENERAL: The patient is male, age 55. Height 6', weight 263 lbs, BMI 35.7. VITAL SIGNS: Temperature 97.6, pulse 74, respiratory rate 16, BP 147/94, 99% RA HEENT: Head normocephalic, atraumatic. Eyes: Extraocular muscles are intact. Pupils are equal, round and reactive to light and accommodation. Ears: No lesions. Nose appeared normal. Throat: No exudate or erythema. NECK: Supple. No JVD, no carotid bruit. No lymphadenopathy or thyromegaly. LUNGS: Clear to auscultation. Percussion note normal. Chest symmetrical. HEART: S1, S2, no S3. No murmurs. No cyanosis or clubbing. No ascites. Pulses: Dorsalis pedis and posterior tibial pulses +1 to +2 bilaterally. ABDOMEN: Soft. Nontender. Bowel sounds active. No CVA tenderness. No mass felt. EXTREMITIES: No edema. Full range of motion of all extremities, equal. NEUROLOGIC: No focal deficit. Cranial nerves II through XII are grossly intact. No headache, no double vision or headache. SKIN: Not dry. Intact. Turgor - normal. LYMPHATIC: No palpable lymph nodes/no lymphedema. MUSCULOSKELETAL: Normal joints with no swelling. Muscle tone is normal. Old/present records reviewed Office records reviewed. ALLERGIES: ATORVASTATIN CALCIUM, ROSUVASTATIN CALCIUM MEDICATIONS: Albuterol Sulfate ASA Klonopin Clonidine Gabapentin Lowry Zestril [place] 3 Metformin Pravastatin LABS/EKG'S/X-RAY/ECHO/ABG: WBC 6.10, hemoglobin 14, platelets 185, HCT 40.6. NA 136, chloride 101.4, BUN 9.9, K+ 4.17, c02 27, creatinine 0.84. UA 3+ glucose, trace ketones. Drug screen positive for opiates and Oxycodone. Troponin within normal limits times three. Chest x-ray no acute findings. CTA neck - minimal atherosclerotic calcifications. Left ICA no measurable stenosis. PROGRESS NOTES: See EMR. DIAGNOSES: 1. CHEST PAIN, ATYPICAL, SHARP 2. COPD 3. HYPERTENSION 4. OBESITY 5. DYSLIPIDEMIA 6. DIABETES MELLITUS TYPE 2 7. NONCOMPLIANT OF LIFESTYLE, DIET, MEDS, RECOMMENDATIONS RECOMMENDATIONS/PLAN: 1. Home today. 2. Outpatient stress echo Sestamibi 05/17/20. 3. May resume Metformin 05/15/20 with a..m. dose. 4. Echocardiogram LVH with LV cavity 5.6 cm. Enlarged LA cavity. Normal LV cavity. EDUCATION CARRIED OUT ABOUT: CAD and risk factors/chews tobacco, reflux and chest pain. TIME SPENT: More than 70 minutes. MTDD
== END 2020-05-13 12:52 | disposition home or self-care (01) ==
LOC: MEDSURG A 13:06 → ED 13:06 → MEDSURG A 18:35
PROVIDERS: ADMIT Internal Medicine; ATTEND Internal Medicine
DX: K21.9 Gastro-esophageal reflux disease without esophagitis; R13.10 Dysphagia, unspecified; E11.9 Type 2 diabetes mellitus without complications; R42 Dizziness and giddiness; Z87.19 Personal history of other diseases of the digestive system; Z91.19 Patient's noncompliance with other medical treatment and regimen; I10 Essential (primary) hypertension; E78.5 Hyperlipidemia, unspecified; Z51.81 Encounter for therapeutic drug level monitoring; E66.9 Obesity, unspecified; J44.9 Chronic obstructive pulmonary disease, unspecified; R22.1 Localized swelling, mass and lump, neck; I20.9 Angina pectoris, unspecified; R07.89 Other chest pain; Z79.899 Other long term (current) drug therapy; Z72.0 Tobacco use; R06.02 Shortness of breath